=== PATIENT | female | born 1955 | race Caucasian/White ===

== ENCOUNTER 2019-10-12 10:40 | Outpatient (CLI) | payer MEDICARE, OTHER ==
[2019-10-12 11:01] LABS: BASOPHILS % (AUTO) 0.4 %; EOSINOPHILS # (AUTO) 0.1 10^3/uL (0.0-0.7); EOSINOPHILS % (AUTO) 2.2 %; HGB - HEMOGLOBIN 14.2 g/dL (12.0-16.0); LYMPHOCYTES # (AUTO) 1.1 10^3/uL (1.5-3.5); LYMPHOCYTES % (AUTO) 24.6 %; MEAN CORPUSCULAR HEMOGLOBIN 31.1 pg (27.0-31.0); MEAN CORPUSCULAR HGB CONC 34.2 g/dL (32.0-36.0); MEAN PLATELET VOLUME 10.9 fL (7.9-10.8); MONOCYTES # (AUTO) 0.4 10^3/uL (0.0-1.0); MONOCYTES % (AUTO) 8.3 %; NEUTROPHILS # (AUTO) 2.9 10^3/uL (1.5-6.6); NEUTROPHILS % (AUTO) 64.3 %; PLT - PLATELET COUNT 175 10^3/uL (130-450); RED BLOOD COUNT 4.56 10^6/uL (4.20-5.40); RED CELL DISTRIBUTION WIDTH 12.4 % (12.0-15.0); WHITE BLOOD COUNT 4.5 x10^3/uL (4.8-10.8)
[2019-10-12 11:11] LABS: ALBUMIN/GLOBULIN RATIO 1.3 (1.0-2.2); CALCIUM 8.9 mg/dL (8.5-10.3); CREATININE 0.9 mg/dL (0.4-1.0)
[2019-10-12 11:16] LABS: HEMOGLOBIN A1C 0.61 g/dL; HEMOGLOBIN A1C % 5.9 % (4.6-6.2)
[2019-10-12 11:28] LABS: THYROID STIMULATING HORMONE 3.46 uIU/mL (0.34-5.60)
[2019-10-12 11:29] LABS: FREE T3 3.37 pg/mL (2.5-3.9)
[2019-10-12 11:30] LABS: FREE T4 (FREE THYROXINE) 1.18 ng/dL (0.58-1.64)
[2019-10-14 09:54] LABS: ANA SCREEN NEGATIVE (NEGATIVE)
== END 2019-10-12 10:41 | disposition home or self-care (01) ==
LOC: LAB 10:40
PROVIDERS: ATTEND Nurse Practitioner Family
DX: E03.8 Other specified hypothyroidism (principal); Z79.899 Other long term (current) drug therapy; L65.9 Nonscarring hair loss, unspecified; R73.9 Hyperglycemia, unspecified
CPT/HCPCS: 36415; 80053; 83036; 84439; 84443; 84481; 85025; 86038; 86376; 86800

== ENCOUNTER 2020-03-14 13:36 | Outpatient (CLI) | payer MEDICARE, OTHER ==
--- NOTE | 2020-03-15 09:55 | Mammography Report ---
BILATERAL DIGITAL SCREENING MAMMOGRAM 3D/2D: 03/14/2020 CLINICAL: Routine screening. Comparison is made to exams dated: 03/09/2018 ultrasound, 03/09/2018 mammogram, and 06/06/2017 mammogr [facility]. There are scattered fibroglandular elements in both breasts. No significant masses, calcifications, or other findings are seen in either breast. There has been no significant interval change. IMPRESSION: NEGATIVE There is no mammographic evidence of malignancy. A 1 year screening mammogram is recommended. This exam was interpreted at Station ID: [id number]. NOTE: For mammograms, a report in lay terms will be sent to the patient. Approximately 15% of breast malignancies will not be visualized mammographically. In the management of a palpable breast mass, a negative mammogram must not discourage biopsy of a clinically suspicious lesion. Electronically Signed By: Bayron lopez/landen:03/14/2020 15:35:04 ACR BI-RADS Category 1: Negative 3341F PARENCHYMAL PATTERN: (A) - The breast(s) demonstrate(s) scattered fibroglandular densities. BI-RADS CATEGORY: (1) - 1 RECOMMENDATION: (ANNUAL) - Recommend routine annual screening mammography. [id number] 1 year screening LATERALITY: (B)
== END 2020-03-14 13:37 | disposition home or self-care (01) ==
LOC: DI 13:36
PROVIDERS: ATTEND Internal Medicine
DX: Z12.31 Encounter for screening mammogram for malignant neoplasm of breast (principal)
CPT/HCPCS: 77063; 77067

== ENCOUNTER 2020-03-14 13:36 | Outpatient (CLI) | payer MEDICARE, OTHER ==
--- NOTE | 2020-03-14 15:20 | DEXA Report ---
PROCEDURE: Dexa Spine and/or Hip INDICATIONS: POST MENOPAUSAL TECHNIQUE: Dual energy x-ray absorptiometry (DXA) was performed on a [employer] System. Regions measur ed are the AP Spine, femoral neck, and if needed forearm. COMPARISON: None. FINDINGS: Lumbar Spine: Bone Mineral Density 1.066 g/cm/cm,T score -1.0, normal Left Hip: Bone Mineral Density 0.840 g/cm/cm,T score -1.3, osteopenia Left Femoral Neck: Bone Mineral Density 0.898 g/cm/cm, T score -1.0, normal (T score greater or equal to -1.0: NORMAL) (T score from -1.1 to -2.4: OSTEOPENIA) (T score less than or equal to -2.5 to: OSTEOPOROSIS) Impression: Normal bone mineral density of the lumbosacral spine and left femoral neck. Mild osteopen ia noted at the left hip region overall. Patients with diagnosis of osteoporosis or osteopenia should have regular bone mineral density assess ment. For those eligible for Medicare, routine testing is allowed once every 2 years. Testing frequ ency can be increased for patients who have rapidly progressing disease or for those who are receivin g medical therapy to restore bone mass. Reviewed by: Tawanda Henderson MD on 03/14/2020 3:18 PM PDT Approved by: Tawanda Henderson MD on 03/14/2020 3:18 PM PDT Station ID: [id number]
== END 2020-03-14 13:37 | disposition home or self-care (01) ==
LOC: DI 13:36
PROVIDERS: ATTEND Internal Medicine
DX: M85.88 Other specified disorders of bone density and structure, other site (principal); N95.8 Other specified menopausal and perimenopausal disorders
CPT/HCPCS: 77080

== ENCOUNTER 2021-07-17 09:30 | Outpatient (CLI) | payer MEDICARE, OTHER ==
--- NOTE | 2021-07-18 07:28 | Mammography Report ---
BILATERAL DIGITAL SCREENING MAMMOGRAM 3D/2D: 07/17/2021 CLINICAL: Routine screening. Comparison is made to exams dated: 03/14/2020 mammogram - [facility], 03/09/2018 [facility], and 06/06/2017 mammogram - [facility]. There are scattered fibroglandular elements in both breasts. No significant masses, calcifications, or other findings are seen in either breast. There has been no significant interval change. IMPRESSION: NEGATIVE There is no mammographic evidence of malignancy. A 1 year screening mammogram is recommended. This exam was interpreted at Station ID: [id number]. NOTE: For mammograms, a report in lay terms will be sent to the patient. Approximately 15% of breast malignancies will not be visualized mammographically. In the management of a palpable breast mass, a negative mammogram must not discourage biopsy of a clinically suspicious lesion. Electronically Signed By: Boris Rico M.D. [email or web address]:07/17/2021 10:49:13 ACR BI-RADS Category 1: Negative 3341F PARENCHYMAL PATTERN: (A) - The breast(s) demonstrate(s) scattered fibroglandular densities. BI-RADS CATEGORY: (1) - 1 RECOMMENDATION: (ANNUAL) - Recommend routine annual screening mammography. [id number] 1 year screening LATERALITY: (B)
== END 2021-07-17 09:31 | disposition home or self-care (01) ==
LOC: DI.S 09:30
PROVIDERS: ATTEND Internal Medicine
DX: Z12.31 Encounter for screening mammogram for malignant neoplasm of breast (principal); Z12.39 Encounter for other screening for malignant neoplasm of breast

== ENCOUNTER 2021-10-26 10:20 | Outpatient (CLI) | payer MEDICARE, OTHER ==
[2021-10-26 10:53] LABS: CHOL/HDL RATIO 4.1 (<4.4); CHOLESTEROL 227 mg/dL; HDL CHOLESTEROL 55 mg/dL; LDL CHOLESTEROL,CALCULATED 146 mg/dL; LDL/HDL RATIO 2.7 (<4.4); TRIGLYCERIDES 129 mg/dL; VLDL CHOLESTEROL 26 mg/dL
[2021-10-27 06:10] LABS: HCV AB <0.1 s/co ratio (0.0-0.9)
== END 2021-10-26 10:21 | disposition home or self-care (01) ==
LOC: LAB 10:20
PROVIDERS: ATTEND Internal Medicine
DX: E78.2 Mixed hyperlipidemia (principal); Z11.59 Encounter for screening for other viral diseases
CPT/HCPCS: 36415; 80061; 83721; 86803

== ENCOUNTER 2023-10-23 12:44 | Outpatient (CLI) | payer MEDICARE, OTHER ==
--- NOTE | 2023-10-24 08:47 | Mammography Report ---
BILATERAL DIGITAL SCREENING MAMMOGRAM 3D/2D: 10/23/2023 CLINICAL: Routine screening. Comparison is made to exams dated: 07/17/2021 mammogram, [facility] 06[facility], 03/09/2018 mammogram, and 11/02/2015 mammogram - [facility]. There are scattered areas of fibroglandular density in both breasts (category b / 25%-50% glandular t issue). No significant masses, calcifications, or other findings are seen in either breast. There has been no significant interval change. IMPRESSION: NEGATIVE There is no mammographic evidence of malignancy. A 1 year screening mammogram is recommended. Based on the Tyrer Cuzick model (a risk assessment model) the patient's lifetime risk is 5.2% and her 10 year risk is 3.3%. According to the ACR, ACS, and NCCN guidelines, an annual breast MRI exam mala g with mammogram is recommended if the patient's lifetime risk is 20% or greater. This exam was interpreted at Station ID: [id number]. NOTE: For mammograms, a report in lay terms will be sent to the patient. Approximately 15% of breast malignancies will not be visualized mammographically. In the management of a palpable breast mass, a negative mammogram must not discourage biopsy of a clinically suspicious lesion. Electronically Signed By: Joann leblanc/landen:10/23/2023 18:10:26 letter sent: No_Letter ACR BI-RADS Category 1: Negative 3341F PARENCHYMAL PATTERN: (A) - The breast(s) demonstrate(s) scattered fibroglandular densities. BI-RADS CATEGORY: (1) - 1 RECOMMENDATION: (ANNUAL) - Recommend routine annual screening mammography. [id number] 1 year screening LATERALITY: (B)
== END 2023-10-23 12:45 | disposition home or self-care (01) ==
LOC: DI 12:44
DX: Z12.31 Encounter for screening mammogram for malignant neoplasm of breast (principal); R92.323 Mammographic fibroglandular density, bilateral breasts